=== PATIENT | male | born 1975 | race Caucasian/White ===

== ENCOUNTER 2017-07-12 13:18 | Emergency (ER) | payer BC, OTHER ==
[~2017-07-12] VITALS: Ht 185.4 cm; Wt 90.0 kg
[~2017-07-12 13:18] MED LIST: HYCUDL5 PO; OSEL75CA12 PO
[2017-07-12 13:24] VITALS: TEMP 36.4; Ht 185.4 cm; Wt 90.0 kg
[2017-07-12] MEDS ORDERED: ONDANSETRON INJ 2 MG/ML 2 ML VIAL IV STA (13:52)
[2017-07-12] MEDS ORDERED: SODIUM CHLORIDE 0.9% 1000ML 1,000 ML IV STA (13:52)
[2017-07-12] MEDS ORDERED: OPTIRAY 320 IV PRN (14:00)
[2017-07-12] MEDS: MoRPHine SULFATE 4 MG/ML 1 ML CARP\\VIAL IV PRN ×3 (14:11→17:29)
[2017-07-12 14:18] LABS: BASO % 0.4 %; BASO ABS # 0.03 K/uL (0-0.2); COMPLETE YES; EOS % 1.5 %; HEMATOCRIT 29.8 % (42-52); IG% 0.4 %; LYMPH % 10.4 %; LYMPH ABS # 0.75 K/uL (1.2-3.4); MEAN CELL VOLUME 93.1 fL (80-100); MEAN CORPUSCULAR HEMOGLOBIN 30.9 pg (25-34); MEAN CORPUSCULAR HGB CONC 33.2 g/dl (32-36); MEAN PLATELET VOLUME 10.8 fL (7.4-10.4); MONO % 9.3 %; PLATELET COUNT 205 K/uL (130-400); WHITE BLOOD COUNT 7.23 K/uL (4.8-10.8)
[2017-07-12 14:28] LABS: INR 1.4 (0.9-1.1); PARTIAL THROMBOPLASTIN RATIO 1.4; PROTHROMBIN TIME (PATIENT) 14.8 SECONDS (9.0-12.0)
[2017-07-12 14:32] LABS: ISTAT CREATININE 0.9 mg/dl (0.6-1.3); ISTAT HEMOGLOBIN 9.9 g/dl (14.0-18.0); ISTAT IONIZED CALCIUM 1.21 mmol/l (1.12-1.32)
[2017-07-12] MEDS ORDERED: MRLP17X PO (14:37)
[2017-07-12] MEDS ORDERED: SENN-61 PO (14:37)
[2017-07-12] MEDS ORDERED: ACET-1311 PO (14:37)
[2017-07-12] MEDS ORDERED: TRAM-10 PO (14:37)
[2017-07-12 14:46] LABS: BUN/CREATININE RATIO 20.5 (10-20); CALCIUM 8.8 mg/dl (8.5-10.1); CREATININE 0.86 mg/dl (0.60-1.40); POTASSIUM 4.1 mmol/L (3.5-5.1)
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
--- NOTE | 2017-07-12 14:53 | DIAGNOSTIC IMAGING REPORT ---
(CHEST) THORAX WITH CT DOSE: 790.20 mGy.cm HISTORY: Trauma left sided pain, trauma TECHNIQUE: Multiaxial CT images of the chest were performed following the intravenous administration of contrast. A dose lowering technique was utilized adhering to the principles of ALARA. COMPARISON: None. FINDINGS: Mild bibasilar atelectasis. Trace pleural fluid left lung base. Nondisplaced fractures left seventh through 10th ribs. Probable splenic laceration. Mediastinal and hilar regions are unremarkable. No evidence pneumothorax. IMPRESSION: 1. Splenic laceration. 2. Nondisplaced fractures left seventh through 10th ribs.. 3. Left and to a lesser extent right basilar atelectasis and pleural fluid. 4. Lungs otherwise are clear with no evidence for pneumothorax. The above report was generated using voice recognition software. It may contain grammatical, syntax or spelling errors. Electronically signed by: Jones Garnett M.D. 07/12/2017 2:52 PM Dictated Date/Time: 07/12/2017 2:48 PM
--- NOTE | 2017-07-12 15:02 | DIAGNOSTIC IMAGING REPORT ---
ABD/PELVIS IV AND ORAL CONT CT DOSE: HISTORY: Trauma left sided pain, trauam TECHNIQUE: Multiaxial CT images of the abdomen and pelvis were performed following the use of intravenous and oral contrast. A dose lowering technique was utilized adhering to the principles of ALARA. COMPARISON STUDY: None. FINDINGS: Mild left and to lesser extent right basilar atelectasis. Liver is considered uniform. There is a small amount of blood anterior to the right hepatic lobe and the right paracolic gutter. Kidneys enhance uniformly. There is a grade 2/grade 3 splenic laceration. There is moderate amount of perisplenic blood. Pancreas is unremarkable. The kidneys again enhance uniformly. There is rather significant amount of free blood within the pelvic cul-de-sac. Bladder is midline. Bowel pattern is nonobstructive. No signs of free air. No additional acute bony abnormality. IMPRESSION: 1. Grade 3/grade 2 left splenic laceration with a laceration in close proximity to the splenic hilum. 2. Moderate free ascites/blood within the abdomen and paracolic gutter regions, with more significant blood within the soft tissue pelvis. 3. No additional posttraumatic abnormality is identified. 4. Known fractures left seventh through 10th ribs with left and to a lesser extent right basilar atelectasis and pleural fluid The above report was generated using voice recognition software. It may contain grammatical, syntax or spelling errors. Electronically signed by: Jones Garnett M.D. 07/12/2017 3:00 PM Dictated Date/Time: 07/12/2017 2:52 PM
[2017-07-12 15:04] LABS: URINE APPEARANCE CLEAR (CLEAR); URINE BILIRUBIN NEG (NEG); URINE COLOR YELLOW; URINE NITRITE NEG (NEG); URINE PH 5.5 (4.5-7.5); URINE SPECIFIC GRAVITY 1.013 (1.000-1.030); UROBILINOGEN NEG (NEG)
[2017-07-12 15:07] LABS: MANUAL MICROSCOPIC REQUIRED? NO; REVIEW REQ? NO
[2017-07-12] MEDS ORDERED: OXYC1TAB3 PO (17:34)
[2017-07-12] MEDS ORDERED: LIDODERM (LIDOCAINE) PATCH 5% TD STA (17:37)
[2017-07-12] MEDS ORDERED: OXYCODONE IR HOME PACK PO ONE (17:45)
[2017-07-12 18:06] VITALS: BP 132/75; PULSE 79; O2SAT 97
== END 2017-07-12 18:10 | disposition home or self-care (01) ==
LOC: C.EDB 13:21 → C.EDA 18:10
DX: R07.9 Chest pain, unspecified (principal); S22.42XA Multiple fractures of ribs, left side, initial encounter for closed fracture; S36.031A Moderate laceration of spleen, initial encounter; V19.3XXA Pedal cyclist (driver) (passenger) injured in unspecified nontraffic accident, initial encounter; Y92.482 Bike path as the place of occurrence of the external cause; R06.02 Shortness of breath; M54.9 Dorsalgia, unspecified

== ENCOUNTER → 2017-07-16 | Outpatient (CLI) | payer BC ==
[~2017-07-16] MED LIST changes: +ACET-1311 PO; -HYCUDL5 PO; +MRLP17X PO; -OSEL75CA12 PO; +OXYC1TAB3 PO; +SENN-61 PO; +TRAM-10 PO
--- NOTE | 2017-07-16 12:56 | DIAGNOSTIC IMAGING REPORT ---
CHEST 2 VIEWS ROUTINE HISTORY: 42 years-old Male PNEUMOTHORAX possible pneumothorax. COMPARISON: CT chest 07/12/2017. TECHNIQUE: Frontal and lateral views of the chest FINDINGS: The cardiomediastinal and hilar silhouettes are within normal limits. No pneumothorax identified. There is persistent trace left pleural effusion with linear subsegmental left basilar opacities suggesting atelectasis. The bones appear grossly intact. Embolization coil within left upper abdomen is redemonstrated. IMPRESSION: 1. Persistent trace left pleural effusion with subsegmental left basilar atelectasis. 2. No pneumothorax identified. The above report was generated using voice recognition software. It may contain grammatical, syntax or spelling errors. Electronically signed by: Nish Poe M.D. 07/16/2017 12:55 PM Dictated Date/Time: 07/16/2017 12:52 PM
== END | disposition home or self-care (01) ==
LOC: C.RAD 12:27
PROVIDERS: ATTEND Surgery
DX: J90 Pleural effusion, not elsewhere classified (principal); J98.11 Atelectasis

== ENCOUNTER → 2017-08-25 | Outpatient (CLI) | payer BC ==
--- NOTE | 2017-08-25 09:37 | DIAGNOSTIC IMAGING REPORT ---
CHEST 2 VIEWS ROUTINE HISTORY: 42 years-old Male J93.9 [id number] follow-up study in a patient with left-sided pneumothorax and rib fracture COMPARISON: Chest radiograph 07/16/2017, CT chest 07/12/2017 TECHNIQUE: PA and lateral views of the chest FINDINGS: Cardiomediastinal and hilar silhouettes are within normal limits. Trace left pleural effusion is noted which has decreased in size from comparison. There is no pneumothorax identified. No focal airspace consolidation. Previously noted left-sided rib fractures are better appreciated on comparison CT involving the left seventh through 10th ribs. IMPRESSION: 1. Decreased size of left pleural effusion with only trace left pleural fluid present. 2. No pneumothorax identified. The above report was generated using voice recognition software. It may contain grammatical, syntax or spelling errors. Electronically signed by: Nish Poe M.D. 08/25/2017 9:36 AM Dictated Date/Time: 08/25/2017 9:33 AM
== END | disposition home or self-care (01) ==
LOC: C.RAD 09:13
PROVIDERS: ATTEND Surgery
DX: J90 Pleural effusion, not elsewhere classified (principal)